=== PATIENT | female | born 1955 | race Caucasian/White ===

== ENCOUNTER 2017-06-12 13:39 | Inpatient (IN) | payer BC ==
[2017-06-12] VITALS (13 sets, daily range): BP systolic 109–211; BP diastolic 59–103; PULSE 79–152; RESP 17–22; TEMP 98.7–98.8; O2SAT 94–99
[~2017-06-12] VITALS: Ht 160 cm; Wt 84.8 kg
[2017-06-12] MEDS ORDERED: METO50TA11 PO (13:50)
[2017-06-12] MEDS ORDERED: LOSA100T PO (13:50)
[2017-06-12] MEDS ORDERED: TRAZ50TA12 PO (13:50)
[2017-06-12] MEDS ORDERED: HYDR25TA5 PO (13:50)
[2017-06-12] MEDS ORDERED: LUTE6CAP2 PO (13:54)
[2017-06-12] MEDS ORDERED: SODIUM CHLOR 0.9% 1000 ML INJ 1,000 ML IV ONE (14:00)
[2017-06-12] MEDS ORDERED: SODIUM CHLORIDE 0.9% FLUSH 10 ML FLUSH IVF PRN (14:00)
[2017-06-12] MEDS ORDERED: DILTIAZEM HCL 25 MG/5 ML VIAL IV PUSH ONE (14:00)
--- NOTE | 2017-06-12 14:16 | RADRPT ---
EXAM DATE/TIME: 06/12/2017 14:12 [place] COMPARISON: No previous studies available for comparison. INDICATIONS : Chest pain and palpitations. MEDICAL HISTORY : Hypertension. SURGICAL HISTORY : None. ENCOUNTER: Initial ACUITY: 1 day PAIN SCORE: 4/10 LOCATION: Bilateral chest FINDINGS: A single view of the chest demonstrates the lungs to be symmetrically aerated without evidence of mas s, infiltrate or effusion. Mild compensated cardiomegaly. Osseous structures are intact. CONCLUSION: Mild computed cardiomegaly without infiltrate or failure. Gómez Velásquez MD FACR on June 12, 2017 at 14:14 Board Certified Radiologist. This report was verified electronically.
[2017-06-12 14:28] LABS: AUTOMATED NEUTROPHIL # 5.4 TH/MM3 (1.8-7.7); BASOPHIL # 0.1 TH/MM3 (0-0.2); EOSINOPHIL # 0.3 TH/MM3 (0-0.4); EOSINOPHIL % 3.1 % (0.0-4.0); HEMATOCRIT 41.2 % (35.0-46.0); HEMO FLAGS DIFF FINAL; LYMPH % 24.5 % (9.0-44.0); LYMPHOCYTE # 2.1 TH/MM3 (1.0-4.8); MEAN CELL VOLUME 91.4 FL (80.0-100.0); MONO % 7.3 % (0.0-8.0); NEUT % 64.1 % (16.0-70.0); PLATELET COUNT 235 TH/MM3 (150-450); RED BLOOD COUNT 4.51 MIL/MM3 (4.00-5.30); RED CELL DISTRIBUTION WIDTH 13.5 % (11.6-17.2); WHITE BLOOD COUNT 8.4 TH/MM3 (4.0-11.0)
[2017-06-12 14:39] LABS: APTT (PATIENT) 27.8 SEC (24.3-30.1); PROTHROMBIN TIME - PATIENT 10.8 SEC (9.8-11.6)
[2017-06-12 14:43] LABS: ANION GAP 9 MEQ/L (5-15); AST (GOT) 28 U/L (15-37); BICARBONATE 28.1 MEQ/L (21.0-32.0); BLOOD UREA NITROGEN 19 MG/DL (7-18); CHLORIDE 105 MEQ/L (98-107); GLOMERULAR FILTRATION RATE 56 ML/MIN (>89); POTASSIUM 3.5 MEQ/L (3.5-5.1); SODIUM (NA) 142 MEQ/L (136-145)
[2017-06-12 14:45] LABS: ALT (GPT) 40 U/L (10-53)
--- NOTE | 2017-06-12 14:46 | PD ---
HPI Chief Complaint: Cardiac Complaint Time Seen by Provider: 13:56 Travel History International Travel<30 days: No Contact w/Intl Traveler<30days: No Traveled to known affect area: No History of Present Illness HPI So well-appearing 61-year-old woman presents to the emergency department abrupt onset of palpitations, feeling weak, squeezing sensation in her throat, starting about an hour so ago. She's never had it before. She states she fell about 2 weeks ago but is been feeling otherwise well. When medical history is hypertension. Symptoms been constant since onset, worsening, with no aggravating or alleviating factors. History Past Medical History Narrative Medical Hypertension Tetanus Vaccination: < 5 Years Influenza Vaccination: Yes Social History Alcohol Use: No Tobacco Use: No Allergies-Medications (Allergen,Severity, Reaction): Coded Allergies: No Known Allergies (Unverified , 06/12/17) Reported Meds & Prescriptions Reported Meds & Active Scripts Active Reported Lutein 6 Mg Cap 6 Mg PO DAILY Trazodone (Trazodone HCl) 50 Mg Tab 25 Mg PO HS Losartan (Losartan Potassium) 100 Mg Tab 100 Mg PO DAILY Metoprolol Succinate ER 24 HR (Metoprolol Succinate) 50 Mg Tab 50 Mg PO DAILY Hydrochlorothiazide 25 Mg Tab 25 Mg PO DAILY Review of Systems Except as stated in HPI: all other systems reviewed are Neg Physical Exam Narrative GENERAL: Well-appearing 61-year-old woman, no acute distress. SKIN: Focused skin assessment warm/dry. HEAD: Atraumatic. Normocephalic. CARDIOVASCULAR: Heart rate rapid and irregular. RESPIRATORY: No accessory muscle use. Clear to auscultation. Breath sounds equal bilaterally. GASTROINTESTINAL: Abdomen soft, non-tender, nondistended. Hepatic and splenic margins not palpable. MUSCULOSKELETAL: No obvious deformities. No clubbing. No cyanosis. No edema. NEUROLOGICAL: Awake and alert. No obvious cranial nerve deficits. Motor grossly within normal limits. Normal speech. PSYCHIATRIC: Mildly anxious. Data Data Last Documented VS Vital Signs Date Time Temp Pulse Resp B/P (MAP) Pulse Ox O2 Delivery O2 Flow Rate FiO2 06/12/17 14:55 117 156/77 06/12/17 14:13 96 Nasal Cannula 2.00 06/12/17 14:13 20 Orders Orders Electrocardiogram (06/12/17 13:56) Complete Blood Count With Diff (06/12/17 13:56) Comprehensive Metabolic Panel (06/12/17 13:56) Magnesium (Mg) (06/12/17 13:56) Prothrombin Time / Inr (Pt) (06/12/17 13:56) Act Partial Throm Time (Ptt) (06/12/17 13:56) Troponin I (06/12/17 13:56) Chest, Single Ap (06/12/17 13:56) Ecg Monitoring (06/12/17 13:56) Bilateral Bp Monitoring (06/12/17 13:56) Iv Access Insert/Monitor (06/12/17 13:56) Oximetry (06/12/17 13:56) Oxygen Administration (06/12/17 13:56) Sodium Chloride 0.9% Flush (Ns Flush) (06/12/17 14:00) Sodium Chlor 0.9% 1000 Ml Inj (Ns 1000 M (06/12/17 14:00) Vital Signs (Adult) Q15MX4,Q4H (06/12/17 13:56) [employer] Coordinator / Telemetry MARIE.Q8H (06/12/17 13:56) Cardiac Rhythm MARIE.Q8H (06/12/17 13:56) Notify Dr: Other (06/12/17 13:56) Diltiazem Inj (Cardizem Inj) (06/12/17 14:00) Diltiazem Inj (Cardizem Inj) (06/12/17 14:00) Admit Order (Ed Use Only) (06/12/17 ) Labs Laboratory Tests Test 06/12/17 14:10 White Blood Count 8.4 TH/MM3 Red Blood Count 4.51 MIL/MM3 Hemoglobin 14.4 GM/DL Hematocrit 41.2 % Mean Corpuscular Volume 91.4 FL Mean Corpuscular Hemoglobin 32.0 PG Mean Corpuscular Hemoglobin Concent 35.0 % Red Cell Distribution Width 13.5 % Platelet Count 235 TH/MM3 Mean Platelet Volume 9.5 FL Neutrophils (%) (Auto) 64.1 % Lymphocytes (%) (Auto) 24.5 % Monocytes (%) (Auto) 7.3 % Eosinophils (%) (Auto) 3.1 % Basophils (%) (Auto) 1.0 % Neutrophils # (Auto) 5.4 TH/MM3 Lymphocytes # (Auto) 2.1 TH/MM3 Monocytes # (Auto) 0.6 TH/MM3 Eosinophils # (Auto) 0.3 TH/MM3 Basophils # (Auto) 0.1 TH/MM3 CBC Comment DIFF FINAL Differential Comment Prothrombin Time 10.8 SEC Prothromb Time International Ratio 1.0 RATIO Activated Partial Thromboplast Time 27.8 SEC Blood Urea Nitrogen 19 MG/DL Creatinine 1.01 MG/DL Random Glucose 168 MG/DL Total Protein 7.9 GM/DL Albumin 3.9 GM/DL Calcium Level 9.2 MG/DL Magnesium Level 2.0 MG/DL Alkaline Phosphatase 94 U/L Aspartate Amino Transf (AST/SGOT) 28 U/L Alanine Aminotransferase (ALT/SGPT) 40 U/L Total Bilirubin 1.4 MG/DL Sodium Level 142 MEQ/L Potassium Level 3.5 MEQ/L Chloride Level 105 MEQ/L Carbon Dioxide Level 28.1 MEQ/L Anion Gap 9 MEQ/L Estimat Glomerular Filtration Rate 56 ML/MIN Troponin I LESS THAN 0.02 NG/ML MDM Medical Decision Making Medical Screen Exam Complete: Yes Emergency Medical Condition: Yes Interpretation(s) My review of EKG: A. fib at a rate of 147, normal axis, normal intervals, nonspecific inferolateral ST depressions with inferior T-wave inversions. Differential Diagnosis Atrial fibrillation, lecture light abnormalities, ACS, hyperthyroidism, other Narrative Course Medical decision making INITIAL: 61-year-old woman presents to the emergency department with new onset A. fib. Looks well. Will rate control, IV fluids, check labs electrolytes and EKG. FINAL: A. fib RVR, new onset, looks well. Good response to diltiazem. Diagnosis Primary Impression: Atrial fibrillation with RVR Manish Alcocer MD Jun 12, 2017 14:46
[2017-06-12 14:48] LABS: ALKALINE PHOSPHATASE 94 U/L (45-117); TOTAL BILIRUBIN ADULT 1.4 MG/DL (0.2-1.0)
[2017-06-12] MEDS: DILTIAZEM INJ 125 MG in SODIUM CHLORIDE 0.9% INJ 100 ML IV PRN (14:55)
[2017-06-12] MEDS ORDERED: SODIUM CHLORIDE 0.9% FLUSH 10 ML FLUSH IV FLUSH PRN (16:15)
--- NOTE | 2017-06-12 16:16 | HHI.HP ---
[facility] Non-Staff Admission Diagnosis Diagnoses: Travel History International Travel<30 Days: No Contact w/Intl Traveler <30 Da: No Traveled to Known Affected Are: No History of Present Illness This is a 61 yo female with no significant medical history who presented to ED with CC of chest palpitations. She reports around 1pm she was at a luncheon at abruptly felt like her heart was racing and someone was squeezing her neck. She denies any other sx. Her blood pressure and pulse were taken at site and she was told it was erratic. A friend them brought her to the hospital. Prior to this patient had been feeling like her normal self. She denies any history of abnormal or fast heartbeat or heart failure. Reports her beta nicole is purely for BP control per her understanding. Reports her blood pressure has been relatively well controlled. She states that she was seen by her primary care physician about 4 weeks ago and reports all her lab work was normal, states her cholesterol was normal and there is no signs of diabetes. She is unsure of her thyroid function was checked. She is currently denying chest pain or shortness of breath. Review of Systems Constitutional: DENIES: Fever, Weight gain, Weight loss, Chills Eyes: DENIES: Blurred vision, Diplopia, Vision loss Ears, nose, mouth, throat: DENIES: Hearing loss, Ear Pain, Running Nose Respiratory: DENIES: Shortness of breath Cardiovascular: COMPLAINS OF: Palpitations, DENIES: Chest pain, Syncope, Dyspnea on Exertion, Lower Extremity Edema Gastrointestinal: DENIES: Abdominal pain, Diarrhea, Nausea Genitourinary: DENIES: Urinary frequency, Urinary incontinence Musculoskeletal: DENIES: Joint pain, Muscle aches, Stiffness Integumentary: DENIES: Rash Neurologic: COMPLAINS OF: Abnormal gait, DENIES: Localized weakness Psychiatric: DENIES: Anxiety, Mood changes, Depression Past Family Social History Past Medical History Hypertension Insominia Past Surgical History Right knee replacement Hysterectomy Reported Medications Lutein 6 Mg Cap 6 Mg PO DAILY Trazodone (Trazodone HCl) 50 Mg Tab 25 Mg PO HS (taken as needed for sleep) Losartan (Losartan Potassium) 100 Mg Tab 100 Mg PO DAILY Metoprolol Succinate ER 24 HR (Metoprolol Succinate) 50 Mg Tab 50 Mg PO DAILY Hydrochlorothiazide 25 Mg Tab 25 Mg PO DAILY Allergies: Coded Allergies: No Known Allergies (Unverified , 06/12/17) Family History no significant medical problems Social History lives with , retired secretary to the vice president rare alcohol use denies cigarettes, denies ilicit drugs Physical Exam Vital Signs Vital Signs Date Time Temp Pulse Resp B/P (MAP) Pulse Ox O2 Delivery O2 Flow Rate FiO2 06/12/17 14:55 117 156/77 06/12/17 14:13 96 Nasal Cannula 2.00 06/12/17 14:13 112 20 156/77 (103) 96 Nasal Cannula 2.00 06/12/17 14:00 189/99 (129) 06/12/17 14:00 98 Nasal Cannula 2.00 06/12/17 13:56 153 24 96 Nasal Cannula 2.00 06/12/17 13:41 152 22 211/103 (139) 99 Physical Exam GENERAL: This is a well-nourished, well-developed patient, in no apparent distress. SKIN: No rashes, ecchymoses or lesions. Cool and dry. HEAD: Atraumatic. Normocephalic. No temporal or scalp tenderness. EYES: Pupils equal round and reactive. Extraocular motions intact. No scleral icterus. No injection or drainage. ENT: Nose without bleeding, purulent drainage or septal hematoma. Throat without erythema, tonsillar hypertrophy or exudate. Uvula midline. Airway patent. NECK: Trachea midline. No JVD or lymphadenopathy. Supple, nontender, no goiter palpated. CARDIOVASCULAR: Rapid rate, irregular rhythm. No murmurs appreciated. RESPIRATORY: Clear to auscultation. Breath sounds equal bilaterally. No wheezes , rales, or rhonchi. GASTROINTESTINAL: Abdomen soft, non-tender, nondistended. No hepato-splenomegaly , or palpable masses. No guarding. MUSCULOSKELETAL: Extremities without clubbing, cyanosis, or edema. No joint tenderness, effusion, or edema noted. No calf tenderness. NEUROLOGICAL: Awake and alert. Cranial nerves II through XII intact. Motor and sensory grossly within normal limits. Five out of 5 muscle strength in all muscle groups. Normal speech. Laboratory Laboratory Tests Test 06/12/17 14:10 White Blood Count 8.4 Red Blood Count 4.51 Hemoglobin 14.4 Hematocrit 41.2 Mean Corpuscular Volume 91.4 Mean Corpuscular Hemoglobin 32.0 Mean Corpuscular Hemoglobin Concent 35.0 Red Cell Distribution Width 13.5 Platelet Count 235 Mean Platelet Volume 9.5 Neutrophils (%) (Auto) 64.1 Lymphocytes (%) (Auto) 24.5 Monocytes (%) (Auto) 7.3 Eosinophils (%) (Auto) 3.1 Basophils (%) (Auto) 1.0 Neutrophils # (Auto) 5.4 Lymphocytes # (Auto) 2.1 Monocytes # (Auto) 0.6 Eosinophils # (Auto) 0.3 Basophils # (Auto) 0.1 CBC Comment DIFF FINAL Differential Comment Prothrombin Time 10.8 Prothromb Time International Ratio 1.0 Activated Partial Thromboplast Time 27.8 Blood Urea Nitrogen 19 Creatinine 1.01 Random Glucose 168 Total Protein 7.9 Albumin 3.9 Calcium Level 9.2 Magnesium Level 2.0 Alkaline Phosphatase 94 Aspartate Amino Transf (AST/SGOT) 28 Alanine Aminotransferase (ALT/SGPT) 40 Total Bilirubin 1.4 Sodium Level 142 Potassium Level 3.5 Chloride Level 105 Carbon Dioxide Level 28.1 Anion Gap 9 Estimat Glomerular Filtration Rate 56 Troponin I LESS THAN 0.02 Result Diagram: 06/12/17 1410 06/12/17 1410 Imaging Last Impressions Chest X-Ray 06/12/17 1356 Signed Impressions: Service Date/Time: Monday, June 12, 2017 14:12 - CONCLUSION: Mild computed cardiomegaly without infiltrate or failure. Gómez Velásquez MD FACR Caprini VTE Risk Assessment Caprini VTE Risk Assessment: Mod/High Risk (score >= 2) Caprini Risk Assessment Model Point Value = 1 Point Value = 2 Point Value = 3 Point Value = 5 Age 41-60 Minor surgery BMI > 25 kg/m2 Swollen legs Varicose veins or History of unexplained or recurrent spontaneous Oral contraceptives or hormone replacement Sepsis (< 1 month) Serious lung disease, including pneumonia (< 1 month) Abnormal pulmonary function Acute myocardial infarction Congestive heart failure (< 1 month) History of inflammatory bowel disease Medical patient at bed rest Age 61-74 Arthroscopic surgery Major open surgery (> 45 min) Laparoscopic surgery (> 45 min) Malignancy Confined to bed (> 72 hours) Immobilizing plaster cast Central venous access Age >= 75 History of VTE Family history of VTE Factor V Leiden Prothrombin [id number] Lupus anticoagulant Anticardiolipin antibodies Elevated serum homocysteine Heparin-induced thrombocytopenia Other congenital or acquired thrombophilia Stroke (< 1 month) Elective arthroplasty Hip, pelvis, or leg fracture Acute spinal cord injury (< 1 month) Prophylaxis Regimen Total Risk Factor Score Risk Level Prophylaxis Regimen 0-1 Low Early ambulation 2 Moderate Order ONE of the following: *Sequential Compression Device (SCD) *Heparin 5000 units SQ BID 3-4 Higher Order ONE of the following medications: *Heparin 5000 units SQ TID *Enoxaparin/Lovenox 40 mg SQ daily (WT < 150 kg, CrCl > 30 mL/min) *Enoxaparin/Lovenox 30 mg SQ daily (WT < 150 kg, CrCl > 10-29 mL/min) *Enoxaparin/Lovenox 30 mg SQ BID (WT < 150 kg, CrCl > 30 mL/min) AND/OR *Sequential Compression Device (SCD) 5 or more Highest Order ONE of the following medications: *Heparin 5000 units SQ TID (Preferred with Epidurals) *Enoxaparin/Lovenox 40 mg SQ daily (WT < 150 kg, CrCl > 30 mL/min) *Enoxaparin/Lovenox 30 mg SQ daily (WT < 150 kg, CrCl > 10-29 mL/min) *Enoxaparin/Lovenox 30 mg SQ BID (WT < 150 kg, CrCl > 30 mL/min) AND *Sequential Compression Device (SCD) Assessment and Plan Problem List: (1) Atrial fibrillation ICD Code: I48.91 - Unspecified atrial fibrillation (2) HTN (hypertension) ICD Code: I10 - Essential (primary) hypertension Assessment and Plan 61 yo female presented with New onset A-fib with RVR. CXR shows mild cardiomegaly without infiltrate or failure. - Heart rate 152 on admission, blood pressure 211/103 - Orders/workup TSH 2 D ECHO Trend EKG and troponins Cardiology consulted - Meds CHADS VASC 2, should be on anticoagulation. I have started her on lovenox. We discussed options of anticoagulation xarelto vs. coumadin. Continue Diltiazem drip HTN - continue home medications Code Status Full code Physician Certification 2 Midnight Certification Type: Admission for Inpatient Services Order for Inpatient Services The services are ordered in accordance with Medicare regulations or non- Medicare payer requirements, as applicable. In the case of services not specified as inpatient-only, they are appropriately provided as inpatient services in accordance with the 2-midnight benchmark. Estimated LOS (days): 2 days is the estimated time the patient will need to remain in the hospital, assuming treatment plan goals are met and no additional complications. Post-Hospital Plan: Not yet determined Fide Allen MD Jun 12, 2017 16:16
--- NOTE | 2017-06-12 17:16 | EKG ---
Date Performed: 06/12/2017 Time Performed: 13:48:08 PTAGE: 61 years EKG: ATRIAL FIBRILLATION WITH RAPID VENTRICULAR RESPONSE NONSPECIFIC ST & T-WAVE ABNORMALITY ABN ORMAL ECG NO PREVIOUS TRACING DOCTOR: Manish Oscar Interpretating Date/Time 06/12/2017 17:14:50
[2017-06-12 18:21] LABS: FREE T4 0.96 NG/DL (0.76-1.46)
[2017-06-12] MEDS ORDERED: ASPIRIN EC 81 MG TABEC PO ONE (19:15)
--- NOTE | 2017-06-12 20:56 | MB ---
cc: JOSE WEISS M.D. DATE OF CONSULTATION 06/12/17 HISTORY OF PRESENT ILLNESS Genoveva is a very pleasant 61-year-old lady with history of hypertension. She developed palpitations and throat tightness today. She came into the ER, initially found to have a blood pressure of 211 and was in a-fib with rapid ventricular response. She was treated with Cardizem with good response and currently is asymptomatic, hemodynamically stable. Heart rate in the 80s and 90s. She denies any excessive salt, caffeine, alcohol intake or NSAID use. She has never had a blood pressure that high before. She otherwise denies any fever, chills, cough, GI or bleeding, PND, orthopnea, syncope or dizziness. PAST MEDICAL HISTORY Per history of present illness. SOCIAL HISTORY Denies tobacco or alcohol use. ALLERGIES None. MEDICATIONS PRIOR TO ADMISSION 1. Lutein 6 milligrams daily. 2. Trazodone. 3. Losartan 100 daily. 4. Metoprolol 50 milligrams daily. 5. Hydrochlorothiazide 25 daily. MEDICATIONS IN THE HOSPITAL 1. Hydrochlorothiazide 25 milligrams daily. 2. Losartan 100 milligrams daily. 3. Toprol XL 50 milligrams daily. 4. Lovenox 90 subcu q. 12 hours. 5. Cardizem drip. PHYSICAL EXAMINATION VITAL SIGNS: Blood pressure 114/74, pulse 97 ranging between 89 and 97 since 17:30, sats 98% on room air, respiratory rate 19. GENERAL: She is alert and oriented times three. No acute distress. NECK: Supple. No JVD, no bruit CARDIOVASCULAR: S1-S2. No murmurs, rubs or gallops. LUNGS: Clear to auscultation bilaterally. ABDOMEN: Soft, nontender, nondistended with positive bowel sounds. EXTREMITIES: No lower extremity edema. LABORATORY DATA White count 8.4, hemoglobin 14.4, hematocrit 41.2, platelet count 235, sodium 142, potassium 3.5, chloride 105, bicarb 28.1, BUN 19 creatinine 1.01, glucose 168. Troponin less than 0.02. LFTs normal. Total bilirubin is 1.4, glucose is 168, INR is 1.0. CARDIOLOGY STUDIES EKG a-fib at a rate of 147 beats per minute. Nonspecific STT wave changes. IMAGING STUDIES The chest x-ray mild computed "cardiomegaly without infiltrate or failure." FINAL DIAGNOSIS 1. New onset a-fib with rapid ventricular response. 2. Hypertension. 3. Elevated total bilirubin. 4. Hyperglycemia. 5. Unstable angina. DISCUSSION Does not appear to be any obvious precipitating etiology to the patient's a-fib. She denies noncompliance, increased sodium, caffeine or alcohol intake. It is possible that this may be an ischemic event leading to hypertension and a-fib. However, there is no obvious objective evidence of ischemia on EKG or by troponin. Her heart rate is controlled and she is asymptomatic on Cardizem drip in addition to her home medications. Currently, her CHADs score is 1. I would add aspirin 81 milligrams daily to her Lovenox. She will need a 2-D echo to determine if she has a cardiomyopathy or CHF which would then make her a CHADs score 2 and therefore require Coumadin and/or novel oral anticoagulant agent. I have discussed this with the patient, she understands. Otherwise, I recommend continued telemetry monitoring. Jose Weiss MD AWC/NAY /7:00 PM /8:38 PM
[2017-06-12] MEDS: ENOXAPARIN SODIUM 100 MG/ML SYRINGE SQ SCH (21:05)
[2017-06-13] VITALS (23 sets, daily range): BP systolic 95–131; BP diastolic 62–86; PULSE 74–116; RESP 18–22; TEMP 97.9–98.9; O2SAT 95–96
--- NOTE | 2017-06-13 07:11 | HHI.PR ---
Subjective Remarks Patient seen and examined. Denies CP, SOB, or palpitations. ECHO still pending. Tolerating her breakfast. Ambulatory without issues. Objective Vital Signs Date Time Temp Pulse Resp B/P (MAP) Pulse Ox O2 Delivery O2 Flow Rate FiO2 06/13/17 06:00 92 06/13/17 05:00 90 06/13/17 04:00 82 06/13/17 03:00 81 06/13/17 03:00 97.9 86 22 95/62 (73) 96 06/13/17 02:00 86 06/13/17 01:00 80 06/12/17 23:00 89 06/12/17 23:00 98.7 86 22 122/80 (94) 96 06/12/17 22:00 82 06/12/17 21:10 98.8 79 18 109/82 (91) 94 06/12/17 21:00 80 06/12/17 20:00 84 06/12/17 19:24 86 20 123/76 (92) 97 Room Air 06/12/17 18:30 97 19 114/74 (87) 98 Room Air 06/12/17 17:30 89 17 121/81 (94) 98 Room Air 06/12/17 16:30 98 19 114/59 (77) 98 Room Air 06/12/17 16:13 121 122/62 06/12/17 15:30 106 19 132/67 (88) 98 Room Air 06/12/17 14:55 117 156/77 06/12/17 14:13 96 Nasal Cannula 2.00 06/12/17 14:13 112 20 156/77 (103) 96 Nasal Cannula 2.00 06/12/17 14:00 189/99 (129) 06/12/17 14:00 98 Nasal Cannula 2.00 06/12/17 13:56 153 24 96 Nasal Cannula 2.00 06/12/17 13:41 152 22 211/103 (139) 99 I/O 06/12/17 06/12/17 06/12/17 06/13/17 06/13/17 06/13/17 06:59 14:59 22:59 06:59 14:59 22:59 Intake Total 1000 ml 620 ml Output Total 200 ml Balance 1000 ml 420 ml Intake Oral 480 ml IV Total 1000 ml 140 ml Output Urine Total 200 ml # Voids 2 Result Diagram: 9/2/17 1410 06/12/17 1410 Imaging Last Impressions Chest X-Ray 06/12/17 1356 Signed Impressions: Service Date/Time: Monday, June 12, 2017 14:12 - CONCLUSION: Mild computed cardiomegaly without infiltrate or failure. Gómez Velásquez MD FACR Objective Remarks GENERAL: sitting in bed eating breakfast, nad. SKIN: Warm and dry. HEAD: Normocephalic. EYES: No scleral icterus. No injection or drainage. NECK: Supple, trachea midline. No JVD or lymphadenopathy. CARDIOVASCULAR: Irregular rhythm without murmurs, gallops, or rubs. Rate sounds <100. RESPIRATORY: Breath sounds equal bilaterally. No accessory muscle use. GASTROINTESTINAL: Abdomen soft, non-tender, nondistended. MUSCULOSKELETAL: No cyanosis, or edema. No calf tenderness. BACK: Nontender without obvious deformity. A/P Problem List: (1) Atrial fibrillation with RVR ICD Code: I48.91 - Unspecified atrial fibrillation Status: Acute (2) HTN (hypertension) ICD Code: I10 - Essential (primary) hypertension Assessment and Plan 61 yo female presented with New onset A-fib with RVR. CXR shows mild cardiomegaly without infiltrate or failure. - Heart rate 152 on admission, blood pressure 211/103 - Orders/workup TSH wnl 2 D ECHO pending Trend EKG and troponins negative Cardiology Dr Tyler: ASA added to regemine, ECHO to determine further workup - Meds CHADS VASC 1, possibly 2 depending on results of ECHO. Cont lovenox & ASA. Continue Diltiazem drip HTN - continue home medications Discharge Planning D/C pending further cardiac workup to include ECHO and reccs by cards. Fide Allen MD Jun 13, 2017 07:11
[2017-06-13] MEDS: METOPROLOL SUCCINATE 50 MG EXTENDED RELEASE TAB PO SCH (08:35)
[2017-06-13] MEDS: HYDROCHLOROTHIAZIDE 25 MG TAB PO SCH (08:35)
[2017-06-13] MEDS: LOSARTAN 50 MG TAB PO SCH (08:35)
[2017-06-13] MEDS: ASPIRIN EC 81 MG TABEC PO SCH (08:35)
[2017-06-13] MEDS: ENOXAPARIN SODIUM 100 MG/ML SYRINGE SQ SCH ×2 (08:36→20:02)
[2017-06-13 08:38] LABS: BICARBONATE 26.5 MEQ/L (21.0-32.0); POTASSIUM 4.2 MEQ/L (3.5-5.1)
[2017-06-14] VITALS: BP 110/64; PULSE 62; PULSE 79; RESP 18; TEMP 97.8; O2SAT 94
[2017-06-14 04:00] VITALS: BP 112/54; PULSE 63; RESP 16; TEMP 97.9; O2SAT 96
[2017-06-14] MEDS: DILTIAZEM INJ 125 MG in SODIUM CHLORIDE 0.9% INJ 100 ML IV PRN (05:40)
--- NOTE | 2017-06-14 06:48 | HHI.PR ---
Subjective Remarks Patient seen and examined. Denies CP, SOB, or palpitations. ECHO performed, rate is pending. Objective Vital Signs Date Time Temp Pulse Resp B/P (MAP) Pulse Ox O2 Delivery O2 Flow Rate FiO2 06/14/17 05:40 63 112/54 06/14/17 00:00 79 06/14/17 00:00 97.8 62 18 110/64 (79) 94 06/13/17 20:00 98.8 81 18 120/72 (88) 96 06/13/17 20:00 95 06/13/17 20:00 74 06/13/17 19:00 98.8 79 20 116/68 (84) 95 06/13/17 18:01 82 06/13/17 17:00 96 06/13/17 16:01 96 06/13/17 15:01 98.9 99 18 120/69 (86) 95 06/13/17 15:00 94 06/13/17 14:00 98 06/13/17 13:00 94 06/13/17 12:00 92 06/13/17 11:45 98.7 86 18 114/86 (95) 96 06/13/17 11:01 87 06/13/17 10:00 80 06/13/17 09:00 98 06/13/17 08:30 98.3 92 18 131/82 (98) 96 06/13/17 08:00 116 06/13/17 07:01 102 I/O 06/13/17 06/13/17 06/13/17 06/14/17 06/14/17 06/14/17 07:00 15:00 23:00 07:00 15:00 23:00 Intake Total 620 ml 779 ml Output Total 200 ml 1650 ml Balance 420 ml -871 ml Intake Oral 480 ml 600 ml IV Total 140 ml 179 ml Output Urine Total 200 ml 1650 ml # Voids 2 5 # Bowel Movements 1 Result Diagram: 06/12/17 1410 06/13/17 0630 Imaging Last Impressions Chest X-Ray 06/12/17 1356 Signed Impressions: Service Date/Time: Monday, June 12, 2017 14:12 - CONCLUSION: Mild computed cardiomegaly without infiltrate or failure. Gómez Velásquez MD FACR Objective Remarks GENERAL: sitting in bed eating breakfast, nad. SKIN: Warm and dry. HEAD: Normocephalic. EYES: No scleral icterus. No injection or drainage. NECK: Supple, trachea midline. No JVD or lymphadenopathy. CARDIOVASCULAR: Irregular rhythm without murmurs, gallops, or rubs. Rate sounds <100. RESPIRATORY: Breath sounds equal bilaterally. No accessory muscle use. GASTROINTESTINAL: Abdomen soft, non-tender, nondistended. MUSCULOSKELETAL: No cyanosis, or edema. No calf tenderness. BACK: Nontender without obvious deformity. A/P Problem List: (1) Atrial fibrillation with RVR ICD Code: I48.91 - Unspecified atrial fibrillation Status: Acute (2) HTN (hypertension) ICD Code: I10 - Essential (primary) hypertension Assessment and Plan 61 yo female presented with New onset A-fib with RVR. CXR shows mild cardiomegaly without infiltrate or failure. - Heart rate 152 on admission, blood pressure 211/103 - Orders/workup TSH wnl 2 D ECHO: Trend EKG and troponins negative Cardiology Dr Tyler: ASA added to regemine, ECHO to determine further workup - Meds CHADS VASC 1, possibly 2 depending on results of ECHO. Cont lovenox & ASA. Continue Diltiazem drip HTN - continue home medications Discharge Planning D/C pending further cardiac cardiac clearance and ECHO results. Fide Allen MD Jun 14, 2017 06:48
--- NOTE | 2017-06-14 07:46 | HHI.PR ---
Subjective Remarks Patient seen and examined. Denies CP, SOB, or palpitations. ECHO performed, report is pending. Wants to know when she can go home. Objective Vital Signs Date Time Temp Pulse Resp B/P (MAP) Pulse Ox O2 Delivery O2 Flow Rate FiO2 06/14/17 05:40 63 112/54 06/14/17 04:00 97.9 63 16 112/54 (73) 96 06/14/17 00:00 79 06/14/17 00:00 97.8 62 18 110/64 (79) 94 06/13/17 20:00 98.8 81 18 120/72 (88) 96 06/13/17 20:00 95 06/13/17 20:00 74 06/13/17 19:00 98.8 79 20 116/68 (84) 95 06/13/17 18:01 82 06/13/17 17:00 96 06/13/17 16:01 96 06/13/17 15:01 98.9 99 18 120/69 (86) 95 06/13/17 15:00 94 06/13/17 14:00 98 06/13/17 13:00 94 06/13/17 12:00 92 06/13/17 11:45 98.7 86 18 114/86 (95) 96 06/13/17 11:01 87 06/13/17 10:00 80 06/13/17 09:00 98 06/13/17 08:30 98.3 92 18 131/82 (98) 96 06/13/17 08:00 116 I/O 06/13/17 06/13/17 06/13/17 06/14/17 06/14/17 06/14/17 07:00 15:00 23:00 07:00 15:00 23:00 Intake Total 620 ml 779 ml 480 ml Output Total 200 ml 1650 ml 650 ml Balance 420 ml -871 ml -170 ml Intake Oral 480 ml 600 ml 480 ml IV Total 140 ml 179 ml Output Urine Total 200 ml 1650 ml 650 ml # Voids 2 5 # Bowel Movements 1 0 Result Diagram: 06/12/17 1410 06/13/17 0630 Imaging Last Impressions Chest X-Ray 06/12/17 1356 Signed Impressions: Service Date/Time: Monday, June 12, 2017 14:12 - CONCLUSION: Mild computed cardiomegaly without infiltrate or failure. óGmez Velásquez MD FACR Objective Remarks GENERAL: sitting in bed comfortably, nad. SKIN: Warm and dry. HEAD: Normocephalic. EYES: No scleral icterus. No injection or drainage. NECK: Supple, trachea midline. No JVD or lymphadenopathy. CARDIOVASCULAR: Regular rhythm and rate, ?murmur over aortic valve RESPIRATORY: Breath sounds equal bilaterally. No accessory muscle use. GASTROINTESTINAL: Abdomen soft, non-tender, nondistended. MUSCULOSKELETAL: No cyanosis, or edema. No calf tenderness. BACK: Nontender without obvious deformity. A/P Problem List: (1) Atrial fibrillation with RVR ICD Code: I48.91 - Unspecified atrial fibrillation Status: Acute (2) HTN (hypertension) ICD Code: I10 - Essential (primary) hypertension Assessment and Plan 61 yo female presented with New onset A-fib with RVR. CXR shows mild cardiomegaly without infiltrate or failure. - Heart rate 152 on admission, blood pressure 211/103 - Orders/workup TSH wnl 2 D ECHO: report pending Trend EKG and troponins negative Cardiology Dr Tyler: ASA added to regemine, ECHO to determine further workup - Meds CHADS VASC 1, possibly 2 depending on results of ECHO. Cont lovenox & ASA. Continue Diltiazem drip HTN - continue home medications Discharge Planning D/C pending further cardiac cardiac clearance and ECHO results. Fide Allen MD Jun 14, 2017 07:46
[2017-06-14 08:00] VITALS: BP 126/83; PULSE 80; RESP 16; TEMP 97.6; O2SAT 95
[2017-06-14] MEDS: METOPROLOL SUCCINATE 50 MG EXTENDED RELEASE TAB PO SCH (09:31)
[2017-06-14] MEDS: ASPIRIN EC 81 MG TABEC PO SCH (09:31)
[2017-06-14] MEDS: LOSARTAN 50 MG TAB PO SCH (09:31)
[2017-06-14] MEDS: HYDROCHLOROTHIAZIDE 25 MG TAB PO SCH (09:31)
[2017-06-14] MEDS: ENOXAPARIN SODIUM 100 MG/ML SYRINGE SQ SCH (09:32)
[2017-06-14 11:43] VITALS: BP 110/57; PULSE 71; RESP 18; TEMP 97.6; O2SAT 96
--- NOTE | 2017-06-14 12:07 | ECHRPT ---
Indication: a fib/flutter CONCLUSIONS The left ventricular systolic function is hyperdynamic with an estimated ejection fraction in the ra nge of 60- 65%. Normal left ventricular size. Mild concentric left ventricular hypertrophy. Mild mitral valve regurgitation. There is mild tricuspid valve regurgitation. The estimated pulmonary arterial pressure is _31_ mmHg. The pulmonary valve is not well visualized. BP: / HR: Rhythm: MEASUREMENTS (Male / Female) Normal Values Technical Quality:Good 2D ECHO LV Diastolic Diameter PLAX 3.6 cm 4.2 - 5.9 / 3.9 - 5.3 cm LV Systolic Diameter PLAX 2.4 cm IVS Diastolic Thickness 1.5 cm 0.6 - 1.0 / 0.6 - 0.9 cm LVPW Diastolic Thickness 1.2 cm 0.6 - 1.0 / 0.6 - 0.9 cm LV Relative Wall Thickness 0.7 RV Internal Dim ED PLAX 3.0 cm M-MODE Aortic Root Diameter MM 3.1 cm LA Systolic Diameter MM 4.4 cm LA Ao Ratio MM 1.4 AV Cusp Separation MM 1.5 cm DOPPLER LV E' Lateral Velocity 14.0 cm/s LV E' Septal Velocity 5.8 cm/s TR Peak Velocity 227.0 cm/s TR Peak Gradient 20.6 mmHg FINDINGS LEFT VENTRICLE The left ventricular systolic function is hyperdynamic with an estimated ejection fraction in the ra nge of 60- 65%. Normal left ventricular size. Mild concentric left ventricular hypertrophy. RIGHT VENTRICLE Normal right ventricular size and systolic function. LEFT ATRIUM The left atrial size is normal. RIGHT ATRIUM The right atrial size is normal. ATRIAL SEPTUM Normal atrial septal thickness without atrial level shunting by limited color doppler interrogation. AORTA The aortic root and proximal ascending aorta are normal in size on limited imaging. MITRAL VALVE Mild mitral valve regurgitation. Structurally normal mitral valve. AORTIC VALVE Trileaflet aortic valve. No aortic valve stenosis or regurgitation. TRICUSPID VALVE Structurally normal tricuspid valve. There is mild tricuspid valve regurgitation. The estimated pulmonary arterial pressure is _31_ mmHg. PULMONARY VALVE The pulmonary valve is not well visualized. VESSELS The inferior vena cava is normal in size. PERICARDIUM No pericardial effusion. Ronit Frederick MD (Electronically Signed) Final Date:14 June 2017 12:06
[2017-06-14] MEDS ORDERED: ASPI-99 PO ×2 (12:23→15:35)
--- NOTE | 2017-06-14 12:23 | HHI.DCPOC ---
Discharge Care Plan Diagnosis: (1) Atrial fibrillation with RVR (2) HTN (hypertension) Goals to Promote Your Health * To prevent worsening of your condition and complications * To maintain your health at the optimal level Directions to Meet Your Goals Take your medications as prescribed Follow your dietary instruction Follow activity as directed Keep your appointments as scheduled Take your immunizations and boosters as scheduled If your symptoms worsen call your PCP, if no PCP go to Urgent Care Center or Emergency Room Smoking is Dangerous to Your Health. Avoid second hand smoke Call the 24-hour hour crisis hotline for domestic abuse at Fide Allen MD Jun 14, 2017 12:23
[2017-06-14 14:09] VITALS: O2SAT 96
--- NOTE | 2017-06-14 14:33 | PD.CARD.PN ---
Subjective Subjective Remarks alert in nad Objective Vital Signs / I&O Vital Signs Date Time Temp Pulse Resp B/P (MAP) Pulse Ox O2 Delivery O2 Flow Rate FiO2 06/14/17 14:09 96 06/14/17 11:43 97.6 71 18 110/57 (74) 96 06/14/17 08:00 97.6 80 16 126/83 (97) 95 06/14/17 05:40 63 112/54 06/14/17 04:00 97.9 63 16 112/54 (73) 96 06/14/17 00:00 79 06/14/17 00:00 97.8 62 18 110/64 (79) 94 06/13/17 20:00 98.8 81 18 120/72 (88) 96 06/13/17 20:00 95 06/13/17 20:00 74 06/13/17 19:00 98.8 79 20 116/68 (84) 95 06/13/17 18:01 82 06/13/17 17:00 96 06/13/17 16:01 96 06/13/17 15:01 98.9 99 18 120/69 (86) 95 06/13/17 15:00 94 I/O 06/13/17 06/13/17 06/13/17 06/14/17 06/14/17 06/14/17 07:00 15:00 23:00 07:00 15:00 23:00 Intake Total 620 ml 779 ml 480 ml Output Total 200 ml 1650 ml 650 ml Balance 420 ml -871 ml -170 ml Intake Oral 480 ml 600 ml 480 ml IV Total 140 ml 179 ml Output Urine Total 200 ml 1650 ml 650 ml # Voids 2 5 # Bowel Movements 1 0 Physical Exam GENERAL: SKIN: Warm and dry. HEAD: Normocephalic. EYES: No scleral icterus. No injection or drainage. NECK: Supple, trachea midline. No JVD or lymphadenopathy. CARDIOVASCULAR: Regular rate and rhythm without murmurs, gallops, or rubs. RESPIRATORY: Breath sounds equal bilaterally. No accessory muscle use. GASTROINTESTINAL: Abdomen soft, non-tender, nondistended. MUSCULOSKELETAL: No cyanosis, or edema. BACK: Nontender without obvious deformity. No CVA tenderness. Assessment and Plan Problem List: (1) Atrial fibrillation ICD Codes: I48.91 - Unspecified atrial fibrillation (2) HTN (hypertension) ICD Codes: I10 - Essential (primary) hypertension Assessment and Plan 1.) New onset afib - rate controlled, assymptomatic, chads score=1, rec aspirin , cardizem, ok to dc from cv standpoint, d/w patient, and nurse, f/u with me 06/16/17 in office Jose Tyler MD Jun 14, 2017 14:33
[2017-06-14] MEDS ORDERED: CARD180C5 PO (15:30)
[2017-06-14] MEDS ORDERED: DILTIAZEM HCL 60 MG TAB PO ONE (15:30)
[2017-06-14 16:00] VITALS: BP 124/77; PULSE 62; RESP 16; TEMP 98.1; O2SAT 93
== END 2017-06-14 18:28 | disposition home or self-care (01) | DRG 309 ==
LOC: NEPC 13:39 → NEDA 16:04 → HCIN 19:39 → N04B 06-13 18:44
PROVIDERS: ADMIT Hospitalist; ATTEND Hospitalist
DX: I48.91 Unspecified atrial fibrillation (principal); I20.0 Unstable angina; I10 Essential (primary) hypertension; Z96.651 Presence of right artificial knee joint; R73.9 Hyperglycemia, unspecified
CPT/HCPCS: 71010; 80048; 80053; 83735; 84439; 84443; 84484; 85025; 85610; 85730; 93005; 93306; 96361; 96365; 96375; J1650; J7030